=== PATIENT | female | born 1930 | race Caucasian/White ===

== ENCOUNTER 2017-03-22 19:28 | Inpatient (IN) | payer OTHER ==
[~2017-03-22] VITALS: Ht 160 cm; Wt 81.5 kg
[~2017-03-22 19:28] MED LIST: CRESTOR10 MG PO; CYMBALTA60 MG PO; Cymbalta PO; DIABETA5 MG PO; Diabeta,Micronase PO; ECOTRIN325 MG PO; Ecotrin PO; GLUCOPHAGE1000 MG PO; JANUVIA25 MG PO; LYRICA50 MG PO; NEXIUM40 MG PO; PROVENTIL,2.5 MG/0.5 IH; TOPROL XL25 MG PO; TYLENOL REGULA325 MG PO; Toprol XL PO; Tylenol Regular Stre PO; ULTRAM50 MG PO; ZESTORETIC 20-1 EAC1 PO; Zestoretic,Prinzide PO
[2017-03-22 20:16] LABS: HEMATOCRIT 36.2 % (36.0-46.0); HEMOGLOBIN 11.7 G/DL (11.9-15.5); MCH 25.7 PG (29.0-34.0); MCHC 32.3 G/DL (30.0-36.0); MCV 79.4 FL (83-99); PLATELET COUNT 336 K/uL (156-360); RBC DIS.WIDTH-CV 16.6 % (11.8-14.6); RBC DIS.WIDTH-SD 46.8 % (39-53); RED BLOOD COUNT 4.56 M/uL (3.80-5.20)
[2017-03-22 20:31] LABS: CHLORIDE 104 mEq/L (99-109); POTASSIUM 3.5 mEq/L (3.7-5.4); SODIUM 136 mEq/L (136-147)
[2017-03-22 20:32] LABS: GLUCOSE 114 mg/dL (70-99)
[2017-03-22 20:36] LABS: GFR ESTIMATE (CALCULATED) 56 mL/min/
[2017-03-22 20:37] LABS: UREA NITROGEN (BUN) 9 mg/dL (9-23)
[2017-03-22 20:43] LABS: TROP-I INTERPRETATION NEGATIVE; TROPONIN-I 0.04 ng/mL (0.0-0.30)
[2017-03-22 23:03] LABS: ALBUMIN 4.3 g/dL (3.2-4.8)
[2017-03-22 23:08] LABS: TOTAL BILIRUBIN 0.9 mg/dL (0.0-1.0)
[2017-03-22 23:09] LABS: ALKALINE PHOSPHATASE 44 IU/L (3-129)
[2017-03-22 23:11] LABS: AST (GOT) 21 IU/L (2-34)
[2017-03-22 23:12] LABS: ALT (GPT) 15 IU/L (3-49); DIRECT BILIRUBIN 0.3 mg/dL (0.0-0.3)
[2017-03-22 23:13] LABS: LIPASE 43 U/L (1.0-51.0)
[2017-03-23 00:10] LABS: TROP-I INTERPRETATION NEGATIVE; TROPONIN-I 0.12 ng/mL (0.0-0.30)
[2017-03-23 01:59] LABS: INTER. NORMALIZED RATIO 1.1
[2017-03-23 02:01] LABS: PTT 30.3 SEC (25-37)
[2017-03-23 04:17] VITALS: BP 153/90
[2017-03-23 07:26] VITALS: BP 139/81
[2017-03-23 11:27] VITALS: BP 131/64
[2017-03-23] MEDS ORDERED: PROTONIX40 MG PO (14:31)
[2017-03-23] MEDS ORDERED: CITALOPRAM HBR20 MG PO (14:31)
[2017-03-23] MEDS ORDERED: REGLAN5 MG PO (14:32)
[2017-03-23] MEDS ORDERED: LEXAPRO5 MG PO (14:33)
[2017-03-23] MEDS ORDERED: CELEBREX100 MG PO (14:33)
[2017-03-23] MEDS ORDERED: HYZAAR 100-11 TABLET PO (14:34)
[2017-03-23] MEDS ORDERED: THEO-24300 MG PO (14:34)
[2017-03-23] MEDS ORDERED: GLUCOPHAGE850 MG PO (14:35)
[2017-03-23 17:29] LABS: CHLORIDE 99 MEQ/L (99-109); POTASSIUM 3.7 MEQ/L (3.7-5.4); SODIUM 136 MEQ/L (136-147)
[2017-03-23 17:35] LABS: GFR ESTIMATE (CALCULATED) 56 mL/min/; UREA NITROGEN (BUN) 12 mg/dL (9-23)
[2017-03-23 17:42] LABS: GLUCOSE 178 mg/dL (70-99); TROP-I INTERPRETATION INDETERMINATE; TROPONIN-I 0.37 ng/mL (0.0-0.30)
[2017-03-23 17:57] VITALS: BP 147/68
[2017-03-23 19:08] VITALS: BP 128/67
[2017-03-23 23:37] VITALS: BP 119/60
[2017-03-24 01:03] LABS: TROP-I INTERPRETATION INDETERMINATE; TROPONIN-I 0.43 ng/mL (0.0-0.30)
[2017-03-24 04:26] VITALS: BP 106/63
[2017-03-24 07:57] LABS: TROP-I INTERPRETATION INDETERMINATE; TROPONIN-I 0.35 ng/mL (0.0-0.30)
[2017-03-24 08:32] VITALS: BP 130/72
[2017-03-24 11:57] VITALS: BP 105/51
[2017-03-24 16:12] LABS: TROP-I INTERPRETATION INDETERMINATE; TROPONIN-I 0.32 ng/mL (0.0-0.30)
[2017-03-24 16:31] VITALS: BP 111/61
[2017-03-24 20:38] VITALS: BP 120/67
[2017-03-25 00:24] VITALS: BP 98/52
[2017-03-25 04:35] VITALS: BP 92/49
[2017-03-25 05:42] LABS: CREATININE 1.5 MG/DL (0.6-1.3)
[2017-03-25 07:25] VITALS: BP 144/65
[2017-03-25 11:24] VITALS: BP 108/57
[2017-03-25 15:23] VITALS: BP 110/55
[2017-03-25 20:23] VITALS: BP 106/53
[2017-03-26] VITALS (9 sets, daily range): BP systolic 110–136; BP diastolic 55–86
[2017-03-26 06:09] LABS: CHLORIDE 101 MEQ/L (99-109); CREATININE 1.6 MG/DL (0.6-1.3); GFR ESTIMATE (CALCULATED) 33 mL/min/; GLUCOSE 204 mg/dL (70-99); POTASSIUM 4.2 MEQ/L (3.7-5.4); SODIUM 133 MEQ/L (136-147); UREA NITROGEN (BUN) 42 mg/dL (9-23)
[2017-03-26 18:46] LABS: CHLORIDE 104 MEQ/L (99-109); MAGNESIUM 1.9 mg/dl (1.3-2.7); POTASSIUM 3.9 MEQ/L (3.7-5.4); SODIUM 134 MEQ/L (136-147)
[2017-03-26 18:52] LABS: CREATININE 1.4 MG/DL (0.6-1.3); GFR ESTIMATE (CALCULATED) 38 mL/min/; GLUCOSE 233 mg/dL (70-99); UREA NITROGEN (BUN) 42 mg/dL (9-23)
[2017-03-26 21:40] LABS: THEOPHYLLINE 23.9 MCG/ML (10-20)
[2017-03-27] VITALS (8 sets, daily range): BP systolic 107–154; BP diastolic 53–74
[2017-03-27 05:08] LABS: HEMOGLOBIN 10.3 G/DL (11.9-15.5); MCH 25.4 PG (29.0-34.0); MCHC 32.2 G/DL (30.0-36.0); MCV 78.8 FL (83-99); NRBC (%) 0.2 /100 WBC (0-0); PLATELET COUNT 299 K/uL (156-360); RBC DIS.WIDTH-CV 17.6 % (11.8-14.6); RBC DIS.WIDTH-SD 49.5 % (39-53); RED BLOOD COUNT 4.06 M/uL (3.80-5.20); WHITE BLOOD COUNT 9.8 K/uL (4.1-10.2)
[2017-03-27 05:29] LABS: ALBUMIN 3.3 G/DL (3.2-4.8); CHLORIDE 103 MEQ/L (99-109); CREATININE 1.3 MG/DL (0.6-1.3); GFR ESTIMATE (CALCULATED) 41 mL/min/; GLUCOSE 224 mg/dL (70-99); PHOSPHORUS 2.7 mg/dL (2.5-4.9); POTASSIUM 4.1 MEQ/L (3.7-5.4); SODIUM 135 MEQ/L (136-147); UREA NITROGEN (BUN) 36 mg/dL (9-23)
[2017-03-28 04:21] VITALS: BP 155/77
[2017-03-28 09:00] VITALS: BP 164/74
[2017-03-28 12:00] VITALS: BP 160/70
[2017-03-28 16:00] VITALS: BP 133/96
[2017-03-28 19:42] VITALS: BP 166/98
[2017-03-28 23:08] VITALS: BP 158/78
[2017-03-29 03:41] VITALS: BP 139/75
[2017-03-29 12:00] VITALS: BP 177/88
[2017-03-29 17:00] VITALS: BP 168/75
[2017-03-29 19:21] VITALS: BP 150/81
[2017-03-29 23:00] VITALS: BP 147/72
[2017-03-30 04:28] VITALS: BP 156/62
[2017-03-30 09:00] VITALS: BP 150/68
[2017-03-30 12:00] VITALS: BP 162/72
[2017-03-30 19:46] VITALS: BP 145/77
[2017-03-30 22:53] VITALS: BP 158/71
[2017-03-31 03:55] VITALS: BP 147/70
[2017-03-31 08:12] VITALS: BP 173/77
[2017-03-31 11:35] VITALS: BP 133/58
[2017-03-31 15:10] VITALS: BP 139/78
[2017-03-31 19:40] VITALS: BP 153/71
[2017-03-31 22:58] VITALS: BP 153/78
[2017-04-01 03:30] VITALS: BP 139/68
[2017-04-01 07:23] VITALS: BP 140/58
[2017-04-01] MEDS ORDERED: CARDIZEM CD,CA240 MG PO (09:01)
[2017-04-01] MEDS ORDERED: ASPIR-LOW81 MG PO (09:01)
[2017-04-01] MEDS ORDERED: NOVOLOG PE100 UNITS/ SC (09:01)
[2017-04-01] MEDS ORDERED: SENNA LAX8.6 MG PO (09:01)
[2017-04-01] MEDS ORDERED: DUONEB 2.5-0.5 M3 ML AEROSOL ×2 (09:01)
[2017-04-01] MEDS ORDERED: LOPRESSOR25 MG PO (09:01)
[2017-04-01] MEDS ORDERED: TYLENOL REGULA325 MG PO (09:01)
[2017-04-01] MEDS ORDERED: LOSARTAN POTASS50 MG PO (09:01)
[2017-04-01] MEDS ORDERED: SORE THROAT SP177 M1 MM (09:01)
[2017-04-01] MEDS ORDERED: NITROSTAT0.4 MG SL (09:01)
[2017-04-01] MEDS ORDERED: ALPRAZOLAM0.25 M2 PO (09:01)
[2017-04-01] MEDS ORDERED: PREDNISONE20 MG PO (09:01)
[2017-04-01] MEDS ORDERED: HYDROCHLOROTH12.5 M3 PO (09:01)
[2017-04-01] MEDS ORDERED: DOCUSATE SODIU100 MG PO (09:01)
== END 2017-04-01 12:01 | DRG 191 ==
LOC: EME 19:28 → 4EAST 03-23 03:04 → EDOF 03-23 03:04 → ENRESERV 03-23 03:05 → 4EAST 03-23 03:59 → ENRESERV 03-25 13:24 → CANRESERV 03-25 13:24 → ENRESERV 03-28 18:36 → CANRESERV 03-28 20:22 → ENPENDDIS 04-01 11:30 → 4EAST 04-01 12:01
PROVIDERS: Emergency Medicine; Internal Medicine; Internal Medicine Cardiovascular Disease
DX: J44.0 Chronic obstructive pulmonary disease with (acute) lower respiratory infection (principal); J96.10 Chronic respiratory failure, unspecified whether with hypoxia or hypercapnia; J44.1 Chronic obstructive pulmonary disease with (acute) exacerbation; I47.1 Supraventricular tachycardia; I48.91 Unspecified atrial fibrillation; J20.9 Acute bronchitis, unspecified; I10 Essential (primary) hypertension; E11.9 Type 2 diabetes mellitus without complications; E78.5 Hyperlipidemia, unspecified; I49.3 Ventricular premature depolarization; K21.9 Gastro-esophageal reflux disease without esophagitis; G47.33 Obstructive sleep apnea (adult) (pediatric); M19.90 Unspecified osteoarthritis, unspecified site; F32.9 Major depressive disorder, single episode, unspecified; F41.0 Panic disorder [episodic paroxysmal anxiety]; Z68.32 Body mass index [BMI] 32.0-32.9, adult; Z87.891 Personal history of nicotine dependence; Z90.49 Acquired absence of other specified parts of digestive tract; Z96.652 Presence of left artificial knee joint; Z79.4 Long term (current) use of insulin; Z99.81 Dependence on supplemental oxygen; Z79.82 Long term (current) use of aspirin; Z79.899 Other long term (current) drug therapy; Z90.710 Acquired absence of both cervix and uterus; Z80.3 Family history of malignant neoplasm of breast
CPT/HCPCS: 71020; 71045; 71275; 80048; 80048 91; 80069; 80076; 80198; 82565; 82948; 83690; 83735; 84484; 84520; 85027; 85379; 85610; 85730; 87070; 87086; 87106; 87205; 87502; 87641; 93005; 94640 76; 94760; 94799; 97530 GP; 99202; 99281; 99285; J0696; J1100; J1160; J1815; J1940; J2920; J2930; J7040; J7050; J7512

== ENCOUNTER 2017-05-17 15:26 | Inpatient (IN) | payer OTHER ==
[~2017-05-17] VITALS: Ht 152.4 cm; Wt 71.4 kg
[~2017-05-17 15:26] MED LIST changes: +ALPRAZOLAM0.25 M2 PO; +ASPIR-LOW81 MG PO; +CARDIZEM CD,CA240 MG PO; +CELEBREX100 MG PO; +CITALOPRAM HBR20 MG PO; +DOCUSATE SODIU100 MG PO; +DUONEB 2.5-0.5 M3 ML AEROSOL; +GLUCOPHAGE500 MG PO; +HYDROCHLOROTH12.5 M3 PO; +HYZAAR 100-11 TABLET PO; +LEXAPRO5 MG PO; +LOPRESSOR25 MG PO; +LOSARTAN POTASS50 MG PO; +NITROSTAT0.4 MG SL; +NOVOLOG PE100 UNITS/ SC; +PREDNISONE20 MG PO; +PROTONIX40 MG PO; +REGLAN5 MG PO; +SENNA LAX8.6 MG PO; +SORE THROAT SP177 M1 MM; +THEO-24300 MG PO
[2017-05-17 16:08] LABS: BASOPHIL (%) 0.4 % (0-1); BASOPHIL COUNT 0.1 K/uL (0-0.1); EOSINOPHIL (%) 0.2 % (0-5); HEMATOCRIT 33.3 % (36.0-46.0); HEMOGLOBIN 11.1 G/DL (11.9-15.5); IMMATURE GRANULOCYTE (%) 0.5 % (0.0-0.7); LYMPHOCYTE (%) 8.8 % (15-42); MCH 26.8 PG (29.0-34.0); MCHC 33.3 G/DL (30.0-36.0); MCV 80.4 FL (83-99); MONOCYTE (%) 8.4 % (3-12); NEUTROPHIL (%) 81.7 % (45-76); NEUTROPHIL COUNT 9.2 K/uL (1.8-6.4); PLATELET COUNT 355 K/uL (156-360); RBC DIS.WIDTH-CV 17.3 % (11.8-14.6); RBC DIS.WIDTH-SD 51.6 % (39-53); RED BLOOD COUNT 4.14 M/uL (3.80-5.20); WHITE BLOOD COUNT 11.3 K/uL (4.1-10.2)
[2017-05-17 16:18] LABS: INTER. NORMALIZED RATIO 1.1
[2017-05-17 16:21] LABS: BASE EXCESS 3.3 mEq/L (-3 to +3); BICARBONATE 26.8 mEq/L (22-26); CARBOXY HGB 1.8 % (0-5); COMMENTS - BLOOD GASES +C; DEVICE HFNC; METHEMOGLOBIN 0.9 % (0-1.5); O2 FLOW 10 L/MIN; PCO2 36 mm Hg (35-45); PO2 64 mm Hg (80-100); SITE RR +A; pH 7.48 (7.35-7.45)
[2017-05-17 16:22] LABS: CHLORIDE 92 mEq/L (99-109); POTASSIUM 3.4 mEq/L (3.7-5.4); SODIUM 126 mEq/L (136-147)
[2017-05-17 16:22] LABS: TOTAL RESP RATE 22 resp/min
[2017-05-17 16:24] LABS: GLUCOSE 116 mg/dL (70-99)
[2017-05-17 16:27] LABS: CREATININE 0.8 mg/dL (0.6-1.3); GFR ESTIMATE (CALCULATED) > 59 mL/min/
[2017-05-17 16:28] LABS: UREA NITROGEN (BUN) 16 mg/dL (9-23)
[2017-05-17 16:32] LABS: TROP-I INTERPRETATION NEGATIVE; TROPONIN-I 0.04 ng/mL (0.0-0.30)
[2017-05-17 17:34] LABS: APPEARANCE CLEAR ((CLEAR)); BILIRUBIN NEGATIVE; BLOOD NEGATIVE; COLOR YELLOW ((YELLOW)); GLUCOSE (STRIP) NEGATIVE; KETONES 5; LEUKOCYTES NEGATIVE; NITRITE NEGATIVE; PROTEIN (STRIP) 30; SPECIFIC GRAVITY 1.024 (1.000-1.030); UCUL ADDED? NO; UROBILINOGEN 0.2 MG/DL (0.2-1.0)
[2017-05-17] MEDS ORDERED: TYLENOL EXTRA500 MG PO (18:58)
[2017-05-17] MEDS ORDERED: LO-DOSE ASPIRIN81 M2 PO (19:03)
[2017-05-17] MEDS ORDERED: PANTOPRAZOLE SO40 MG PO (19:06)
[2017-05-17] MEDS ORDERED: THEOPHYLLINE600 MG PO (19:07)
[2017-05-17] MEDS ORDERED: PROAIR HFA8.5 GM IH (19:09)
[2017-05-17] MEDS ORDERED: ALBUTEROL2.5 MG/3 M IH (19:11)
[2017-05-17] MEDS ORDERED: HUMALOG100 UNIT/1 SC (19:12)
[2017-05-17] MEDS ORDERED: DILTIAZEM 24HR240 MG PO (19:14)
[2017-05-17] MEDS ORDERED: LOSARTAN POTASS25 MG PO (19:15)
[2017-05-17] MEDS ORDERED: METOPROLOL TART25 MG PO (19:16)
[2017-05-17] MEDS ORDERED: METOCLOPRAMIDE H5 MG PO (19:17)
[2017-05-17] MEDS ORDERED: METFORMIN HCL850 MG PO (19:18)
[2017-05-17] MEDS ORDERED: LYRICA75 MG PO (19:20)
[2017-05-17] MEDS ORDERED: ADVAIR 500/501 DISK IH (19:21)
[2017-05-17 22:27] VITALS: BP 147/67
[2017-05-18] VITALS (11 sets, daily range): BP systolic 95–145; BP diastolic 56–88
[2017-05-18 06:07] LABS: HEMATOCRIT 30.5 % (36.0-46.0); HEMOGLOBIN 9.9 G/DL (11.9-15.5); MCHC 32.5 G/DL (30.0-36.0); MCV 80.1 FL (83-99); PLATELET COUNT 347 K/uL (156-360); RBC DIS.WIDTH-CV 17.3 % (11.8-14.6); RED BLOOD COUNT 3.81 M/uL (3.80-5.20); WHITE BLOOD COUNT 3.8 K/uL (4.1-10.2)
[2017-05-18 06:33] LABS: CHLORIDE 91 MEQ/L (99-109); CREATININE 0.7 MG/DL (0.6-1.3); GFR ESTIMATE (CALCULATED) > 59 mL/min/; GLUCOSE 196 mg/dL (70-99); POTASSIUM 3.7 MEQ/L (3.7-5.4); SODIUM 127 MEQ/L (136-147); UREA NITROGEN (BUN) 12 mg/dL (9-23)
[2017-05-19 04:00] VITALS: BP 126/61
[2017-05-19 08:06] VITALS: BP 138/73
[2017-05-19 08:51] LABS: BASOPHIL (%) 0 % (0-1); EOSINOPHIL (%) 0 % (0-5); HEMATOCRIT 31.2 % (36.0-46.0); HEMOGLOBIN 10.1 G/DL (11.9-15.5); IMMATURE GRANULOCYTE (%) 0.6 % (0.0-0.7); LYMPHOCYTE (%) 4.1 % (15-42); LYMPHOCYTE COUNT 0.3 K/uL (1.0-2.8); MCHC 32.4 G/DL (30.0-36.0); MCV 80.4 FL (83-99); MONOCYTE (%) 3.6 % (3-12); MONOCYTE COUNT 0.3 K/uL (0-0.8); NEUTROPHIL (%) 91.7 % (45-76); NEUTROPHIL COUNT 6.3 K/uL (1.8-6.4); PLATELET COUNT 348 K/uL (156-360); RBC DIS.WIDTH-CV 17.5 % (11.8-14.6); RBC DIS.WIDTH-SD 51.3 % (39-53); RED BLOOD COUNT 3.88 M/uL (3.80-5.20); WHITE BLOOD COUNT 6.9 K/uL (4.1-10.2)
[2017-05-19 09:17] LABS: CHLORIDE 92 MEQ/L (99-109); CREATININE 0.7 MG/DL (0.6-1.3); GFR ESTIMATE (CALCULATED) > 59 mL/min/; GLUCOSE 191 mg/dL (70-99); MAGNESIUM 1.7 mg/dl (1.3-2.7); POTASSIUM 3.8 MEQ/L (3.7-5.4); SODIUM 129 MEQ/L (136-147); UREA NITROGEN (BUN) 18 mg/dL (9-23)
[2017-05-19 12:54] VITALS: BP 115/72
[2017-05-19 16:38] VITALS: BP 134/65
[2017-05-19 19:33] VITALS: BP 125/78
[2017-05-19 23:43] VITALS: BP 136/78
[2017-05-20 04:14] VITALS: BP 121/65
[2017-05-20 07:30] LABS: CHLORIDE 92 MEQ/L (99-109); CREATININE 0.7 MG/DL (0.6-1.3); GFR ESTIMATE (CALCULATED) > 59 mL/min/; GLUCOSE 215 mg/dL (70-99); MAGNESIUM 1.9 mg/dl (1.3-2.7); POTASSIUM 4.5 MEQ/L (3.7-5.4); SODIUM 131 MEQ/L (136-147); UREA NITROGEN (BUN) 23 mg/dL (9-23)
[2017-05-20 08:00] VITALS: BP 145/71
[2017-05-20 12:00] VITALS: BP 115/68; BP 126/73
[2017-05-20 15:58] VITALS: BP 129/71
[2017-05-20 20:08] VITALS: BP 123/65
[2017-05-20 23:52] VITALS: BP 146/67
[2017-05-21 03:26] VITALS: BP 120/65
[2017-05-21 07:10] LABS: CHLORIDE 94 MEQ/L (99-109); CREATININE 0.8 MG/DL (0.6-1.3); GFR ESTIMATE (CALCULATED) > 59 mL/min/; GLUCOSE 221 mg/dL (70-99); POTASSIUM 4.8 MEQ/L (3.7-5.4); SODIUM 130 MEQ/L (136-147); UREA NITROGEN (BUN) 21 mg/dL (9-23)
[2017-05-21 08:20] VITALS: BP 138/74
[2017-05-21 11:54] VITALS: BP 131/67
[2017-05-21 15:50] VITALS: BP 156/64
[2017-05-21 20:04] VITALS: BP 141/63
[2017-05-21 23:51] VITALS: BP 157/70
[2017-05-22 04:08] VITALS: BP 161/70
[2017-05-22 06:52] LABS: HEMATOCRIT 35.8 % (36.0-46.0); HEMOGLOBIN 11.4 G/DL (11.9-15.5); MCH 26.4 PG (29.0-34.0); MCHC 31.8 G/DL (30.0-36.0); MCV 82.9 FL (83-99); PLATELET COUNT 331 K/uL (156-360); RBC DIS.WIDTH-CV 17.2 % (11.8-14.6); RBC DIS.WIDTH-SD 52.4 % (39-53); RED BLOOD COUNT 4.32 M/uL (3.80-5.20); WHITE BLOOD COUNT 8.8 K/uL (4.1-10.2)
[2017-05-22 07:12] LABS: CHLORIDE 91 MEQ/L (99-109); CREATININE 0.8 MG/DL (0.6-1.3); GFR ESTIMATE (CALCULATED) > 59 mL/min/; GLUCOSE 216 mg/dL (70-99); POTASSIUM 4.8 MEQ/L (3.7-5.4); SODIUM 128 MEQ/L (136-147); UREA NITROGEN (BUN) 21 mg/dL (9-23)
[2017-05-22 07:46] VITALS: BP 162/77
[2017-05-22] MEDS ORDERED: PREDNISONE10 MG PO (13:28)
[2017-05-22] MEDS ORDERED: LOSARTAN POTASS25 MG PO (13:28)
[2017-05-22] MEDS ORDERED: FUROSEMIDE40 MG PO (13:28)
[2017-05-22] MEDS ORDERED: K-DUR20 MEQ PO (13:28)
[2017-05-22] MEDS ORDERED: MAG-OXIDE400 MG PO (13:28)
[2017-05-22] MEDS ORDERED: ELIQUIS5 MG PO (13:28)
== END 2017-05-22 15:38 | DRG 189 ==
LOC: EME 15:26 → EDOF 19:13 → 5SOUTH 19:13 → ENRESERV 19:15 → 5SOUTH 22:02
PROVIDERS: Emergency Medicine; Hospitalist; Physician Assistant
DX: J96.21 Acute and chronic respiratory failure with hypoxia (principal); J44.9 Chronic obstructive pulmonary disease, unspecified; S92.424A Nondisplaced fracture of distal phalanx of right great toe, initial encounter for closed fracture; E87.1 Hypo-osmolality and hyponatremia; W19.XXXA Unspecified fall, initial encounter; S22.41XA Multiple fractures of ribs, right side, initial encounter for closed fracture; R00.0 Tachycardia, unspecified; I11.9 Hypertensive heart disease without heart failure; E11.9 Type 2 diabetes mellitus without complications; K21.9 Gastro-esophageal reflux disease without esophagitis; Z96.652 Presence of left artificial knee joint; I47.1 Supraventricular tachycardia; R07.9 Chest pain, unspecified; G47.33 Obstructive sleep apnea (adult) (pediatric); F32.9 Major depressive disorder, single episode, unspecified; M19.90 Unspecified osteoarthritis, unspecified site; I48.92 Unspecified atrial flutter; R26.9 Unspecified abnormalities of gait and mobility; S30.1XXA Contusion of abdominal wall, initial encounter; F41.9 Anxiety disorder, unspecified; E87.0 Hyperosmolality and hypernatremia; R29.6 Repeated falls; J44.1 Chronic obstructive pulmonary disease with (acute) exacerbation; E78.5 Hyperlipidemia, unspecified; F03.90 Unspecified dementia, unspecified severity, without behavioral disturbance, psychotic disturbance, mood disturbance, and anxiety; M25.551 Pain in right hip; M25.571 Pain in right ankle and joints of right foot; I45.10 Unspecified right bundle-branch block; Z99.81 Dependence on supplemental oxygen; Z79.01 Long term (current) use of anticoagulants; Y92.009 Unspecified place in unspecified non-institutional (private) residence as the place of occurrence of the external cause; Z80.1 Family history of malignant neoplasm of trachea, bronchus and lung; Z82.5 Family history of asthma and other chronic lower respiratory diseases; Z90.710 Acquired absence of both cervix and uterus; Z91.81 History of falling; Z87.891 Personal history of nicotine dependence; D64.9 Anemia, unspecified
CPT/HCPCS: 36600; 70450; 71046; 71101; 71275; 72070; 72100; 73060; 73660; 74176; 80048; 81003; 82803; 82948; 83605; 83735; 83880; 84484; 85025; 85027; 85610; 85730; 87502; 93005; 93306; 94010; 94640; 94640 76; 94667; 94668; 94760; 94799; 97530 GP; 99202; 99281; 99285; J1100; J1815; J1940; J2920; J2930; J7030; J7644

== ENCOUNTER 2017-06-06 10:56 | Inpatient (IN) | payer OTHER ==
[~2017-06-06] VITALS: Ht 160 cm; Wt 82.7 kg
[~2017-06-06 10:56] MED LIST changes: +ADVAIR 500/501 DISK IH; +ALBUTEROL2.5 MG/3 M IH; +DILTIAZEM 24HR240 MG PO; +ELIQUIS5 MG PO; +FUROSEMIDE40 MG PO; +HUMALOG100 UNIT/1 SC; +K-DUR20 MEQ PO; +LO-DOSE ASPIRIN81 M2 PO; +LOSARTAN POTASS25 MG PO; +LYRICA75 MG PO; +MAG-OXIDE400 MG PO; +METFORMIN HCL850 MG PO; +METOCLOPRAMIDE H5 MG PO; +METOPROLOL TART25 MG PO; +PANTOPRAZOLE SO40 MG PO; +PREDNISONE10 MG PO; +PROAIR HFA8.5 GM IH; +THEOPHYLLINE600 MG PO; +TYLENOL EXTRA500 MG PO
[2017-06-06 11:50] LABS: HEMATOCRIT 31.2 % (36.0-46.0); HEMOGLOBIN 10.1 G/DL (11.9-15.5); MCHC 32.4 G/DL (30.0-36.0); MCV 83.4 FL (83-99); RBC DIS.WIDTH-CV 16.5 % (11.8-14.6); RBC DIS.WIDTH-SD 50.3 % (39-53); RED BLOOD COUNT 3.74 M/uL (3.80-5.20); WHITE BLOOD COUNT 18.8 K/uL (4.1-10.2)
[2017-06-06 11:54] LABS: INTER. NORMALIZED RATIO 1.9
[2017-06-06 11:57] LABS: ALBUMIN 3.1 g/dL (3.2-4.8); CHLORIDE 98 mEq/L (99-109); PTT 35.2 SEC (25-37)
[2017-06-06 11:58] LABS: MAGNESIUM 1.5 mg/dL (1.3-2.7); POTASSIUM 3.4 mEq/L (3.7-5.4); SODIUM 132 mEq/L (136-147)
[2017-06-06 12:00] LABS: GLUCOSE 141 mg/dL (70-99); TOTAL PROTEIN 5.1 g/dL (6.4-8.3)
[2017-06-06 12:02] LABS: TOTAL BILIRUBIN 0.7 mg/dL (0.0-1.0)
[2017-06-06 12:04] LABS: ALKALINE PHOSPHATASE 61 IU/L (3-129); CREATININE 0.9 mg/dL (0.6-1.3); GFR ESTIMATE (CALCULATED) > 59 mL/min/
[2017-06-06 12:05] LABS: UREA NITROGEN (BUN) 10 mg/dL (9-23)
[2017-06-06 12:06] LABS: AST (GOT) 10 IU/L (2-34)
[2017-06-06 12:07] LABS: ALT (GPT) 9 IU/L (3-49)
[2017-06-06 12:09] LABS: BASOPHIL (%) 0.2 % (0-1); EOSINOPHIL (%) 0 % (0-5); IMMATURE GRANULOCYTE (%) 0.7 % (0.0-0.7); LYMPHOCYTE (%) 1.2 % (15-42); LYMPHOCYTE COUNT 0.2 K/uL (1.0-2.8); MONOCYTE (%) 5.2 % (3-12); NEUTROPHIL (%) 92.7 % (45-76); NEUTROPHIL COUNT 17.4 K/uL (1.8-6.4); TROP-I INTERPRETATION NEGATIVE; TROPONIN-I 0.07 ng/mL (0.0-0.30)
[2017-06-06 12:27] LABS: PLAT.SUFFICIENCY ADEQUATE
[2017-06-06 12:32] LABS: PLATELET COUNT 202 K/uL (156-360)
[2017-06-06] MEDS ORDERED: MAG-OXIDE400 MG PO (14:33)
[2017-06-06] MEDS ORDERED: BREO ELLIPTA 21 EACH IH (14:37)
[2017-06-06] MEDS ORDERED: LEXAPRO20 MG PO (14:39)
[2017-06-06] MEDS ORDERED: TYLENOL ARTHRI650 MG PO (14:41)
[2017-06-06] MEDS ORDERED: CHEST CONGESTI400 MG PO (14:44)
[2017-06-06 16:15] VITALS: BP 116/55
[2017-06-06 18:20] LABS: BASE EXCESS -2.4 mEq/L (-3 to +3); BICARBONATE 22.5 mEq/L (22-26); CARBOXY HGB 1.6 % (0-5); COMMENTS - BLOOD GASES A+C+; DEVICE NRBM; METHEMOGLOBIN 1.5 % (0-1.5); O2 FLOW 15 L/MIN; PCO2 38 mm Hg (35-45); PO2 56 mm Hg (80-100); SITE RR; pH 7.38 (7.35-7.45)
[2017-06-06 18:33] LABS: HEMATOCRIT 33.7 % (36.0-46.0); HEMOGLOBIN 10.7 G/DL (11.9-15.5); MCH 26.9 PG (29.0-34.0); MCHC 31.8 G/DL (30.0-36.0); MCV 84.7 FL (83-99); PLATELET COUNT 196 K/uL (156-360); RBC DIS.WIDTH-CV 16.9 % (11.8-14.6); RBC DIS.WIDTH-SD 52.6 % (39-53); RED BLOOD COUNT 3.98 M/uL (3.80-5.20); WHITE BLOOD COUNT 13.7 K/uL (4.1-10.2)
[2017-06-06 18:52] LABS: CHLORIDE 98 MEQ/L (99-109); GFR ESTIMATE (CALCULATED) 56 mL/min/; POTASSIUM 3.5 MEQ/L (3.7-5.4); SODIUM 131 MEQ/L (136-147); UREA NITROGEN (BUN) 12 mg/dL (9-23)
[2017-06-06 18:56] LABS: TROP-I INTERPRETATION NEGATIVE; TROPONIN-I 0.06 ng/mL (0.0-0.30)
[2017-06-06 19:02] LABS: GLUCOSE 269 mg/dL (70-99)
[2017-06-06 19:17] VITALS: BP 125/60
[2017-06-06 21:00] VITALS: BP 117/62; BP 117/68
[2017-06-06 21:18] LABS: APPEARANCE CLEAR ((CLEAR)); BILIRUBIN NEGATIVE; BLOOD NEGATIVE; COLOR YELLOW ((YELLOW)); GLUCOSE (STRIP) 50; KETONES NEGATIVE; LEUKOCYTES NEGATIVE; NITRITE NEGATIVE; PROTEIN (STRIP) NEGATIVE; SPECIFIC GRAVITY 1.013 (1.000-1.030); UCUL ADDED? NO; UROBILINOGEN 0.2 MG/DL (0.2-1.0)
[2017-06-06 22:00] VITALS: BP 105/56
[2017-06-06 22:36] LABS: CHLORIDE 96 MEQ/L (99-109); CREATININE 0.9 MG/DL (0.6-1.3); GFR ESTIMATE (CALCULATED) > 59 mL/min/; GLUCOSE 303 mg/dL (70-99); POTASSIUM 3.6 MEQ/L (3.7-5.4); SODIUM 131 MEQ/L (136-147); UREA NITROGEN (BUN) 13 mg/dL (9-23)
[2017-06-06 22:41] LABS: BASE EXCESS -1.2 mEq/L (-3 to +3); BICARBONATE 21.6 mEq/L (22-26); CARBOXY HGB 1.3 % (0-5); METHEMOGLOBIN 1.9 % (0-1.5)
[2017-06-06 22:42] LABS: COMMENTS - BLOOD GASES C+A+; DEVICE NIV; FI02 80 %; MODE SPONT; PCO2 29 mm Hg (35-45); PEEP 5 CM/H20; PO2 76 mm Hg (80-100); PRES. SUPPORT 10 CM/H2O; SITE RR; TOTAL RESP RATE 30 resp/min; pH 7.48 (7.35-7.45)
[2017-06-06 23:00] VITALS: BP 114/60
[2017-06-07] VITALS (15 sets, daily range): BP systolic 98–165; BP diastolic 57–118
[2017-06-07 16:44] LABS: BASE EXCESS 0.6 mEq/L (-3 to +3); BICARBONATE 23.6 mEq/L (22-26); CARBOXY HGB 2.3 % (0-5); METHEMOGLOBIN 1.2 % (0-1.5); PCO2 31 mm Hg (35-45); PO2 63 mm Hg (80-100); pH 7.49 (7.35-7.45)
[2017-06-07 16:45] LABS: COMMENTS - BLOOD GASES A+C+; DEVICE NIV; FI02 40 %; MODE SPONT; PEEP 5 CM/H20; PRES. SUPPORT 12 CM/H2O; SITE LR; TOTAL RESP RATE 32 resp/min
[2017-06-08] VITALS (19 sets, daily range): BP systolic 89–152; BP diastolic 48–110
[2017-06-08 01:12] LABS: BASE EXCESS 3.4 mEq/L (-3 to +3); BICARBONATE 26.3 mEq/L (22-26); CARBOXY HGB 1.7 % (0-5); COMMENTS - BLOOD GASES A+C+; DEVICE MASKVENT; FI02 40 %; METHEMOGLOBIN 1.4 % (0-1.5); MODE NSPONT; PCO2 33 mm Hg (35-45); PEEP 5 CM/H20; PO2 57 mm Hg (80-100); PRES. SUPPORT 12 CM/H2O; SITE RR; TOTAL RESP RATE 26 resp/min; pH 7.51 (7.35-7.45)
[2017-06-08 01:12] LABS: HEMATOCRIT 31.3 % (36.0-46.0); HEMOGLOBIN 10.2 G/DL (11.9-15.5); MCH 26.8 PG (29.0-34.0); MCHC 32.6 G/DL (30.0-36.0); MCV 82.4 FL (83-99); PLATELET COUNT 143 K/uL (156-360); RBC DIS.WIDTH-CV 16.9 % (11.8-14.6); RBC DIS.WIDTH-SD 50.5 % (39-53)
[2017-06-08 01:24] LABS: CHLORIDE 103 mEq/L (99-109); POTASSIUM 3.7 mEq/L (3.7-5.4); SODIUM 137 mEq/L (136-147)
[2017-06-08 01:27] LABS: GLUCOSE 149 mg/dL (70-99)
[2017-06-08 01:30] LABS: CREATININE 0.9 mg/dL (0.6-1.3); GFR ESTIMATE (CALCULATED) > 59 mL/min/
[2017-06-08 01:31] LABS: UREA NITROGEN (BUN) 18 mg/dL (9-23)
[2017-06-08 03:23] LABS: ABS NEUTROPHIL COUNT 8.7; ANISOCYTOSIS 2+; BAND NEUTROPHILS 32.7 % (0-8.0); BURR CELLS 1+; EOSINOPHIL ABS CT 0; LYMPHOCYTES 6.2 % (15.0-45.0); METAMYELOCYTES 1.8 %; MICROCYTOSIS 2+; MONOCYTES 5.3 % (0-9.0); OVALOCYTES 1+; PLAT.SUFFICIENCY DECREASED; POIKILOCYTOSIS 2+
[2017-06-08 12:03] LABS: INTER. NORMALIZED RATIO 1.3
[2017-06-08 12:06] LABS: PTT 29.2 SEC (25-37)
[2017-06-08 12:31] LABS: MAGNESIUM 1.6 mg/dl (1.3-2.7); PHOSPHORUS 2.2 mg/dL (2.5-4.9)
[2017-06-08 12:33] LABS: VANCOMYCIN, TROUGH 6.4 MCG/ML (10-20)
[2017-06-08 14:41] LABS: BICARBONATE 29.1 mEq/L (22-26); CARBOXY HGB 1.7 % (0-5); COMMENTS - BLOOD GASES A+C+; DEVICE NCHH; FI02 70 %; METHEMOGLOBIN 1.2 % (0-1.5); O2 FLOW 50 L/MIN; PCO2 40 mm Hg (35-45); PO2 84 mm Hg (80-100); SITE RR; pH 7.47 (7.35-7.45)
[2017-06-09] VITALS (25 sets, daily range): BP systolic 87–159; BP diastolic 48–99
[2017-06-09 05:07] LABS: HEMATOCRIT 27.8 % (36.0-46.0); HEMOGLOBIN 8.9 G/DL (11.9-15.5); MCH 26.9 PG (29.0-34.0); PLATELET COUNT 124 K/uL (156-360); RBC DIS.WIDTH-CV 16.9 % (11.8-14.6); RBC DIS.WIDTH-SD 51.7 % (39-53); RED BLOOD COUNT 3.31 M/uL (3.80-5.20); WHITE BLOOD COUNT 7.2 K/uL (4.1-10.2)
[2017-06-09 05:51] LABS: ALBUMIN 2.7 g/dL (3.2-4.8); CHLORIDE 108 mEq/L (99-109); POTASSIUM 3.7 mEq/L (3.7-5.4); SODIUM 143 mEq/L (136-147)
[2017-06-09 05:54] LABS: GLUCOSE 145 mg/dL (70-99); TOTAL PROTEIN 4.5 g/dL (6.4-8.3)
[2017-06-09 05:57] LABS: ALKALINE PHOSPHATASE 39 IU/L (3-129); CREATININE 0.8 mg/dL (0.6-1.3); GFR ESTIMATE (CALCULATED) > 59 mL/min/; PHOSPHORUS 2.4 mg/dL (2.5-4.9)
[2017-06-09 05:58] LABS: TOTAL BILIRUBIN 1.2 mg/dL (0.0-1.0); UREA NITROGEN (BUN) 19 mg/dL (9-23)
[2017-06-09 06:00] LABS: ALT (GPT) 11 IU/L (3-49)
[2017-06-09 06:03] LABS: AST (GOT) 15 IU/L (2-34)
[2017-06-09 07:44] LABS: BASOPHIL (%) 0.1 % (0-1); EOSINOPHIL (%) 0 % (0-5); IMMATURE GRANULOCYTE (%) 0.1 % (0.0-0.7); LYMPHOCYTE (%) 3.5 % (15-42); LYMPHOCYTE COUNT 0.3 K/uL (1.0-2.8); MONOCYTE (%) 3.9 % (3-12); MONOCYTE COUNT 0.3 K/uL (0-0.8); NEUTROPHIL (%) 92.4 % (45-76); NEUTROPHIL COUNT 6.6 K/uL (1.8-6.4)
[2017-06-09 08:18] LABS: BASE EXCESS 2.9 mEq/L (-3 to +3); BICARBONATE 27.1 mEq/L (22-26); COMMENTS - BLOOD GASES +C; DEVICE PB840; PCO2 39 mm Hg (35-45); PO2 70 mm Hg (80-100); SITE RR +A; pH 7.45 (7.35-7.45)
[2017-06-09 08:19] LABS: CONTINUOUS POS AIRWAY PRESSURE 5 cm H2O; FI02 50 %; MODE NIV; PRES. SUPPORT 12 CM/H2O; TOTAL RESP RATE 26 resp/min
[2017-06-09 11:58] LABS: BASE EXCESS 3.3 mEq/L (-3 to +3); BICARBONATE 27.9 mEq/L (22-26); CARBOXY HGB 1.6 % (0-5); METHEMOGLOBIN 1.1 % (0-1.5); PCO2 42 mm Hg (35-45); pH 7.43 (7.35-7.45)
[2017-06-09 11:59] LABS: COMMENTS - BLOOD GASES NAC+; PO2 174 mm Hg (80-100); SITE RR
[2017-06-09 12:00] LABS: DEVICE VENT; FI02 80 %; MECHANICAL RATE 20 resp/min; MODE A/C; PEEP 8 CM/H20; TIDAL VOLUME 450 ML; TOTAL RESP RATE 28 resp/min
[2017-06-10] VITALS (22 sets, daily range): BP systolic 85–127; BP diastolic 40–85
[2017-06-10 08:30] LABS: BASOPHIL (%) 0.1 % (0-1); EOSINOPHIL (%) 0.3 % (0-5); HEMATOCRIT 27.7 % (36.0-46.0); HEMOGLOBIN 8.6 G/DL (11.9-15.5); IMMATURE GRANULOCYTE (%) 1.7 % (0.0-0.7); LYMPHOCYTE (%) 4.5 % (15-42); LYMPHOCYTE COUNT 0.3 K/uL (1.0-2.8); MCH 26.5 PG (29.0-34.0); MCV 85.5 FL (83-99); MONOCYTE (%) 7.2 % (3-12); MONOCYTE COUNT 0.6 K/uL (0-0.8); NEUTROPHIL (%) 86.2 % (45-76); NEUTROPHIL COUNT 6.6 K/uL (1.8-6.4); PLATELET COUNT 159 K/uL (156-360); RBC DIS.WIDTH-SD 53.5 % (39-53); RED BLOOD COUNT 3.24 M/uL (3.80-5.20); WHITE BLOOD COUNT 7.6 K/uL (4.1-10.2)
[2017-06-10 09:08] LABS: BASE EXCESS 1.3 mEq/L (-3 to +3); BICARBONATE 25.9 mEq/L (22-26); CARBOXY HGB 1.4 % (0-5); COMMENTS - BLOOD GASES NA C+; DEVICE VENT; FI02 60 %; MECHANICAL RATE 20 resp/min; METHEMOGLOBIN 1.5 % (0-1.5); MODE AC; PCO2 40 mm Hg (35-45); PEEP 8 CM/H20; PO2 80 mm Hg (80-100); SITE RR; TIDAL VOLUME 450 ML; TOTAL RESP RATE 23 resp/min; pH 7.42 (7.35-7.45)
[2017-06-10 10:21] LABS: CREATININE 0.7 MG/DL (0.6-1.3); GFR ESTIMATE (CALCULATED) > 59 mL/min/; GLUCOSE 178 mg/dL (70-99); PHOSPHORUS 1.7 mg/dL (2.5-4.9); POTASSIUM 3.2 MEQ/L (3.7-5.4); SODIUM 143 MEQ/L (136-147); UREA NITROGEN (BUN) 17 mg/dL (9-23)
[2017-06-10 10:22] LABS: CHLORIDE 110 MEQ/L (99-109)
[2017-06-10 13:49] LABS: C DIFF TOXIN NEGATIVE (NEGATIVE)
[2017-06-11] VITALS (19 sets, daily range): BP systolic 80–166; BP diastolic 49–135
[2017-06-11 05:07] LABS: BASOPHIL (%) 0 % (0-1); EOSINOPHIL (%) 0.2 % (0-5); HEMATOCRIT 26.6 % (36.0-46.0); HEMOGLOBIN 8.2 G/DL (11.9-15.5); IMMATURE GRANULOCYTE (%) 1.7 % (0.0-0.7); LYMPHOCYTE (%) 9.2 % (15-42); LYMPHOCYTE COUNT 0.6 K/uL (1.0-2.8); MCH 26.5 PG (29.0-34.0); MCHC 30.8 G/DL (30.0-36.0); MCV 86.1 FL (83-99); MONOCYTE (%) 11.4 % (3-12); MONOCYTE COUNT 0.7 K/uL (0-0.8); NEUTROPHIL (%) 77.5 % (45-76); NEUTROPHIL COUNT 4.6 K/uL (1.8-6.4); PLATELET COUNT 169 K/uL (156-360); RBC DIS.WIDTH-CV 17.2 % (11.8-14.6); RBC DIS.WIDTH-SD 53.9 % (39-53); RED BLOOD COUNT 3.09 M/uL (3.80-5.20)
[2017-06-11 05:32] LABS: CHLORIDE 111 MEQ/L (99-109); CREATININE 0.8 MG/DL (0.6-1.3); GFR ESTIMATE (CALCULATED) > 59 mL/min/; GLUCOSE 148 mg/dL (70-99); MAGNESIUM 1.9 mg/dl (1.3-2.7); PHOSPHORUS 2.4 mg/dL (2.5-4.9); POTASSIUM 4.1 MEQ/L (3.7-5.4); SODIUM 142 MEQ/L (136-147); UREA NITROGEN (BUN) 18 mg/dL (9-23)
[2017-06-11 17:06] LABS: PTT 30.4 SEC (25-37)
[2017-06-11 18:11] LABS: BASOPHIL (%) 0.1 % (0-1); EOSINOPHIL (%) 0 % (0-5); HEMATOCRIT 29.2 % (36.0-46.0); IMMATURE GRANULOCYTE (%) 1.7 % (0.0-0.7); LYMPHOCYTE (%) 4.1 % (15-42); LYMPHOCYTE COUNT 0.3 K/uL (1.0-2.8); MCH 26.3 PG (29.0-34.0); MCHC 30.8 G/DL (30.0-36.0); MCV 85.4 FL (83-99); MONOCYTE (%) 5.1 % (3-12); MONOCYTE COUNT 0.4 K/uL (0-0.8); NEUTROPHIL COUNT 7.2 K/uL (1.8-6.4); RBC DIS.WIDTH-CV 17.2 % (11.8-14.6); RED BLOOD COUNT 3.42 M/uL (3.80-5.20); WHITE BLOOD COUNT 8.1 K/uL (4.1-10.2)
[2017-06-11 20:43] LABS: PLATELET CLUMPS PRESENT - PLATELET COUNT APPEARS ADQ.; PLATELET COUNT UNABLE TO REPORT K/uL (156-360)
[2017-06-12] VITALS (21 sets, daily range): BP systolic 100–175; BP diastolic 61–122
[2017-06-12 07:16] LABS: HEMATOCRIT 29.8 % (36.0-46.0); HEMOGLOBIN 9.1 G/DL (11.9-15.5); MCH 26.1 PG (29.0-34.0); MCHC 30.5 G/DL (30.0-36.0); MCV 85.4 FL (83-99); PLATELET COUNT 263 K/uL (156-360); RBC DIS.WIDTH-CV 17.2 % (11.8-14.6); RBC DIS.WIDTH-SD 53.8 % (39-53); RED BLOOD COUNT 3.49 M/uL (3.80-5.20); WHITE BLOOD COUNT 8.4 K/uL (4.1-10.2)
[2017-06-12 07:28] LABS: CHLORIDE 110 MEQ/L (99-109); CREATININE 0.8 MG/DL (0.6-1.3); GFR ESTIMATE (CALCULATED) > 59 mL/min/; GLUCOSE 199 mg/dL (70-99); MAGNESIUM 1.9 mg/dl (1.3-2.7); POTASSIUM 4.1 MEQ/L (3.7-5.4); SODIUM 142 MEQ/L (136-147); UREA NITROGEN (BUN) 19 mg/dL (9-23)
[2017-06-12 07:30] LABS: PHOSPHORUS 3.3 mg/dL (2.5-4.9)
[2017-06-12 07:54] LABS: ABS NEUTROPHIL COUNT 7.2; ANISOCYTOSIS 1+; BURR CELLS 1+; EOSINOPHIL ABS CT 0; LYMPHOCYTES 6.1 % (15.0-45.0); METAMYELOCYTES 1.8 %; MICROCYTOSIS 1+; MONOCYTES 6.1 % (0-9.0); PLAT.SUFFICIENCY ADEQUATE; POIKILOCYTOSIS 2+; SCHISTOCYTES 1+; SMUDGE CELLS 1.8
[2017-06-12 07:56] LABS: BAND NEUTROPHILS 0.9 % (0-8.0); SEG.NEUTROPHILS 85.1 % (46.0-76.0)
[2017-06-13] VITALS (23 sets, daily range): BP systolic 114–202; BP diastolic 65–156
[2017-06-13 07:48] LABS: HEMATOCRIT 29.5 % (36.0-46.0); HEMOGLOBIN 9.2 G/DL (11.9-15.5); MCH 26.2 PG (29.0-34.0); MCHC 31.2 G/DL (30.0-36.0); RBC DIS.WIDTH-CV 17.2 % (11.8-14.6); RBC DIS.WIDTH-SD 52.5 % (39-53); RED BLOOD COUNT 3.51 M/uL (3.80-5.20); WHITE BLOOD COUNT 11.3 K/uL (4.1-10.2)
[2017-06-13 07:54] LABS: PLATELET COUNT 354 K/uL (156-360)
[2017-06-13 08:13] LABS: ABS NEUTROPHIL COUNT 10.6; ANISOCYTOSIS 1+; BAND NEUTROPHILS 1.8 % (0-8.0); BURR CELLS 1+; EOSINOPHIL ABS CT 0; LYMPHOCYTES 0.9 % (15.0-45.0); METAMYELOCYTES 3.5 %; MICROCYTOSIS 1+; MONOCYTES 1.7 % (0-9.0); OVALOCYTES 1+; PLAT.SUFFICIENCY ADEQUATE; POIKILOCYTOSIS 2+; SEG.NEUTROPHILS 92.1 % (46.0-76.0); SMUDGE CELLS 2.6
[2017-06-13 09:42] LABS: CHLORIDE 108 MEQ/L (99-109); GFR ESTIMATE (CALCULATED) 56 mL/min/; MAGNESIUM 1.9 mg/dl (1.3-2.7); PHOSPHORUS 4.4 mg/dL (2.5-4.9); POTASSIUM 4.3 MEQ/L (3.7-5.4); SODIUM 142 MEQ/L (136-147); UREA NITROGEN (BUN) 25 mg/dL (9-23)
[2017-06-13 09:46] LABS: GLUCOSE 384 mg/dL (70-99)
[2017-06-14] VITALS (19 sets, daily range): BP systolic 96–157; BP diastolic 70–122
[2017-06-14 06:21] LABS: HEMATOCRIT 29.8 % (36.0-46.0); HEMOGLOBIN 9.6 G/DL (11.9-15.5); MCH 27.6 PG (29.0-34.0); MCHC 32.2 G/DL (30.0-36.0); MCV 85.6 FL (83-99); NRBC (%) 0.3 /100 WBC (0-0); PLATELET COUNT 432 K/uL (156-360); RBC DIS.WIDTH-CV 17.2 % (11.8-14.6); RBC DIS.WIDTH-SD 53.2 % (39-53); RED BLOOD COUNT 3.48 M/uL (3.80-5.20); WHITE BLOOD COUNT 19.3 K/uL (4.1-10.2)
[2017-06-14 06:52] LABS: ACANTHOCYTES 1+; ANISOCYTOSIS 1+; BAND NEUTROPHILS 0.9 % (0-8.0); BURR CELLS 1+; EOSINOPHIL ABS CT 0; HYPERSEGMENTATION 1+; METAMYELOCYTES 1.7 %; MICROCYTOSIS 1+; MONOCYTES 2.6 % (0-9.0); MYELOCYTES 2.6 %; NUCLEATED RBC'S 1.7; OVALOCYTES 1+; PLAT.SUFFICIENCY INCREASED; POIKILOCYTOSIS 2+; POLYCHROMASIA 1+; SCHISTOCYTES 1+; SEG.NEUTROPHILS 92.2 % (46.0-76.0); TOXIC GRANULATION 1+
[2017-06-14 06:56] LABS: ALBUMIN 2.4 G/DL (3.2-4.8); ALKALINE PHOSPHATASE 38 IU/L (3-129); ALT (GPT) 7 IU/L (3-49); AST (GOT) 7 IU/L (2-34); CHLORIDE 107 MEQ/L (99-109); CREATININE 0.9 MG/DL (0.6-1.3); GFR ESTIMATE (CALCULATED) > 59 mL/min/; GLUCOSE 394 mg/dL (70-99); MAGNESIUM 1.9 mg/dl (1.3-2.7); PHOSPHORUS 3.7 mg/dL (2.5-4.9); POTASSIUM 4.5 MEQ/L (3.7-5.4); SODIUM 140 MEQ/L (136-147); TOTAL BILIRUBIN 0.5 MG/DL (0.0-1.0); TOTAL PROTEIN 4.8 G/DL (6.4-8.3); UREA NITROGEN (BUN) 33 mg/dL (9-23); VANCOMYCIN, TROUGH 18.3 MCG/ML (10-20)
[2017-06-15] VITALS (22 sets, daily range): BP systolic 85–133; BP diastolic 55–87
[2017-06-15 06:02] LABS: BASOPHIL (%) 0.3 % (0-1); BASOPHIL COUNT 0.1 K/uL (0-0.1); EOSINOPHIL (%) 0 % (0-5); LYMPHOCYTE (%) 2.1 % (15-42); LYMPHOCYTE COUNT 0.7 K/uL (1.0-2.8); MONOCYTE (%) 3.7 % (3-12); MONOCYTE COUNT 1.2 K/uL (0-0.8); NEUTROPHIL (%) 88.9 % (45-76); NEUTROPHIL COUNT 27.5 K/uL (1.8-6.4); PLATELET COUNT 486 K/uL (156-360)
[2017-06-15 06:05] LABS: HEMATOCRIT 32.9 % (36.0-46.0); MCH 26.8 PG (29.0-34.0); MCHC 30.4 G/DL (30.0-36.0); MCV 88.2 FL (83-99); NRBC (%) 0.1 /100 WBC (0-0); RBC DIS.WIDTH-CV 17.6 % (11.8-14.6); RBC DIS.WIDTH-SD 56.9 % (39-53); RED BLOOD COUNT 3.73 M/uL (3.80-5.20)
[2017-06-15 06:34] LABS: CHLORIDE 107 MEQ/L (99-109); CREATININE 0.9 MG/DL (0.6-1.3); GFR ESTIMATE (CALCULATED) > 59 mL/min/; GLUCOSE 310 mg/dL (70-99); PHOSPHORUS 3.9 mg/dL (2.5-4.9); SODIUM 140 MEQ/L (136-147); UREA NITROGEN (BUN) 38 mg/dL (9-23); VANCOMYCIN, TROUGH 15.8 MCG/ML (10-20)
[2017-06-15 06:47] LABS: POTASSIUM 5.7 MEQ/L (3.7-5.4)
[2017-06-15 18:39] LABS: INTER. NORMALIZED RATIO 1.1
[2017-06-15 18:41] LABS: PTT 67.7 SEC (25-37)
[2017-06-16] VITALS (9 sets, daily range): BP systolic 0–149; BP diastolic 0–104
[2017-06-16 06:47] LABS: CHLORIDE 108 MEQ/L (99-109); CREATININE 0.9 MG/DL (0.6-1.3); GFR ESTIMATE (CALCULATED) > 59 mL/min/; GLUCOSE 315 mg/dL (70-99); POTASSIUM 4.8 MEQ/L (3.7-5.4); SODIUM 142 MEQ/L (136-147); UREA NITROGEN (BUN) 42 mg/dL (9-23)
== END 2017-06-16 17:49 | DRG 870 ==
LOC: EME 10:56 → 4WEST 12:55 → EDOF 12:55 → 4EAST 12:55 → ENRESERV 13:25 → EDOF 13:37 → ENRESERV 14:07 → 4EAST 15:45 → ENRESERV 21:00 → 4WEST 21:10 → CANRESERV 06-16 13:38 → ENRESERV 06-16 13:38 → 5EAST 06-16 15:35
PROVIDERS: Emergency Medicine; Hospitalist; Internal Medicine; Obstetrics & Gynecology; Specialist; Surgery
PROC: 5A09457 Assistance with Respiratory Ventilation, 24-96 Consecutive Hours, Continuous Positive Airway Pressure (ICD-10-PCS; principal; 2017-06-06)
PROC: 5A1955Z Respiratory Ventilation, Greater than 96 Consecutive Hours (ICD-10-PCS; 2017-06-09)
PROC: 0BH18EZ Insertion of Endotracheal Airway into Trachea, Via Natural or Artificial Opening Endoscopic (ICD-10-PCS; 2017-06-09)
DX: A41.02 Sepsis due to Methicillin resistant Staphylococcus aureus (principal); R65.20 Severe sepsis without septic shock; J96.21 Acute and chronic respiratory failure with hypoxia; N17.9 Acute kidney failure, unspecified; J15.212 Pneumonia due to Methicillin resistant Staphylococcus aureus; J44.0 Chronic obstructive pulmonary disease with (acute) lower respiratory infection; J44.1 Chronic obstructive pulmonary disease with (acute) exacerbation; J10.08 Influenza due to other identified influenza virus with other specified pneumonia; E87.2 Acidosis; E87.1 Hypo-osmolality and hyponatremia; E11.65 Type 2 diabetes mellitus with hyperglycemia; I11.0 Hypertensive heart disease with heart failure; I50.9 Heart failure, unspecified; G47.33 Obstructive sleep apnea (adult) (pediatric); I48.91 Unspecified atrial fibrillation; E78.5 Hyperlipidemia, unspecified; D64.9 Anemia, unspecified; K21.9 Gastro-esophageal reflux disease without esophagitis; Y95 Nosocomial condition; F32.9 Major depressive disorder, single episode, unspecified; F41.9 Anxiety disorder, unspecified; M19.90 Unspecified osteoarthritis, unspecified site; Z51.5 Encounter for palliative care; Z66 Do not resuscitate; Z96.652 Presence of left artificial knee joint; Z99.81 Dependence on supplemental oxygen; Z79.01 Long term (current) use of anticoagulants; Z79.82 Long term (current) use of aspirin; Z79.4 Long term (current) use of insulin; Z85.3 Personal history of malignant neoplasm of breast; Z87.891 Personal history of nicotine dependence
CPT/HCPCS: 31500; 36600; 71045; 80048; 80048 91; 80053; 80202; 81003; 82803; 82948; 83605; 83735; 83880; 84100; 84484; 85025; 85025 91; 85027; 85610; 85730; 87040; 87070; 87077; 87086; 87147; 87186; 87205; 87493; 87502; 87641; 87801; 93005; 93306; 94002; 94003; 94640; 94640 76; 94760; 94799; 99202; 99281; 99285; C1753; C9113; J0360; J0456; J1100; J1160; J1170; J1815; J1940; J2060; J2250; J2405; J2543; J2704; J2920; J3370; J3475; J7030; J7050; J7120; J7512